=== PATIENT | male | born 1940 | race Caucasian/White ===

== ENCOUNTER → 2018-09-30 | Outpatient (CLI) | payer MEDICARE | END | disposition home or self-care (01) | LOC: LABWHC1 07:54 | PROVIDERS: ATTEND Urology | DX: R73.01 Impaired fasting glucose (principal); R97.20 Elevated prostate specific antigen [PSA] | CPT/HCPCS: 36415; 82947; 84153 ==

== ENCOUNTER → 2021-01-21 | Outpatient (CLI) | payer MEDICARE | END | disposition home or self-care (01) | LOC: LABPAT 07:58 | PROVIDERS: ATTEND Orthopaedic Surgery | DX: M17.12 Unilateral primary osteoarthritis, left knee (principal) | CPT/HCPCS: 93005 ==

== ENCOUNTER → 2021-01-24 | Outpatient (CLI) | payer MEDICARE ==
[2021-01-24 09:23] LABS: HCT 39.3 % (39.0-53.0); HGB 13.6 gm/dL (13.0-17.5); MCH 32.9 pg (25.0-35.0); MCHC 34.7 g/dL (31.0-37.0); MCV 94.9 fL (80.0-100.0); Mean Platelet Volume 6.9; Platelet Count 260 k/uL (150-450); RBC 4.15 m/uL (4.30-5.90); RDW 13.4 % (11.5-15.5)
[2021-01-24 09:35] LABS: Albumin 4.1 g/dL (3.5-5.0); Potassium 4.8 mmol/L (3.5-5.1); Total Bilirubin 0.7 mg/dL (0.2-1.3)
[2021-01-24 09:47] LABS: Appearance,Urine Clear (Clear); Bilirubin,Urine Negative (Negative); Blood,Urine Trace (Negative); Color,Urine Yellow; Glucose,Urine (UA) Negative (Negative); Ketones,Urine Negative (Negative); Leukocyte Esterase,Urine Negative (Negative); Mucus,Urine Rare /hpf; Nitrite,Urine Negative (Negative); PH, Urine 5.5 (5.0-8.0); Protein,Urine Negative (Negative); RBC,Urine <1 /hpf (0-5); Specific Gravity,Urine 1.015 (1.001-1.035); Squamous Epithelial Cell,Urine <1 /hpf (0-4); Urobilinogen,Urine <2.0 mg/dL (<2.0); WBC,Urine 1 /hpf (0-5)
[2021-01-24 09:55] LABS: INR 0.9 (<1.2); Partial Thromboplastin Time 22.8 sec (22.0-30.0); Prothrombin Time 9.7 sec (9.0-12.0)
== END | disposition home or self-care (01) ==
LOC: LABPAT 08:20
PROVIDERS: ATTEND Orthopaedic Surgery
DX: Z01.812 Encounter for preprocedural laboratory examination (principal)
CPT/HCPCS: 80053; 81001; 85027; 85610; 85730

== ENCOUNTER 2021-02-20 09:48 | Observation (INO) | payer MEDICARE ==
[2021-02-15 16:03] VITALS: BMI 25.4
[~2021-02-20 09:48] MED LIST: ACETAMINOPHEN TAB 500 MG TAB PO PRN; DEXAMETHASONE SOD PHOSPHATE 10 MG/ML 1 ML VIAL IV PRN; DEXAMETHASONE SOD PHOSPHATE 4 MG/ML 1 ML VIAL IV ONE; DOCUSATE 100 MG CAP PO PRN; FAMOTIDINE 20 MG/2 ML VIAL IVP PRN; HYDROmorphone 0.5 MG/0.5 ML SYRINGE IVP PRN; KETOROLAC 15 MG/ML 1 ML VIAL IVP PRN; LACTATED RINGERS 1,000 ML IV SCH; LIDOCAINE 1% (10MG/ML) FOR IV START INTRADERMA PRN; MIDAZOLAM 2 MG/2 ML VIAL IV PRN; ONDANSETRON 4 MG/2 ML VIAL IVP ONE; ONDANSETRON 4 MG/2 ML VIAL IVP PRN; TRANEXAMIC ACID 1,000 MG in SODIUM CHLORIDE 0.9% 100 ML IVPB PRN; VANCOMYCIN 1,000 MG in SODIUM CHLORIDE 0.9% 250 ML IVPB PRN; oxyCODONE ER 10 MG TAB.ER.12H PO PRN
[2021-02-20] MEDS ORDERED: TRANEXAMIC ACID 1,000 MG in SODIUM CHLORIDE 0.9% 100 ML IVPB ONE (10:19)
[2021-02-20 10:56] LABS: Glucose,Whole Blood 105 mg/dL (75-99)
[2021-02-20] MEDS ORDERED: MIDAZOLAM 2 MG/2 ML VIAL IVP ONE (12:32)
--- NOTE | 2021-02-20 13:15 | P.ANPRN ---
Procedure Note - Anesthesia - Nerve Block Performed Left Adductor Canal Time Out Performed: Yes (12:30) Date of Procedure: 02/20/21 Procedure Start Time: :30 Procedure Stop Time: : Location of Patient: PreOp Indication: Acute Post-Operative Pain, Requested by Surgeon (Dr Thorpe) Sedation Type: Sedate with meaningful contact maintained Preparation: Sterile Prep, Sterile Dressing Position: Supine Catheter: Indwelling Needle Types: Pajunk Needle Gauge: 21 Ultrasound used to visualize needle placement: Yes Ultrasound used to observe medication spread: Yes Injectate: 0.5% Ropivacaine (see comment for volume) (15cc) Blood Aspirated: No Pain Paresthesia on Injection Noted: No Resistance on Injection: Normal Image Stored and Saved: Yes Events: Uneventful and Well Tolerated
--- NOTE | 2021-02-20 13:22 | P.ANPRN ---
Procedure Note - Anesthesia - Nerve Block Performed Left iPack Time Out Performed: Yes Date of Procedure: 02/20/21 Procedure Start Time: 12:42 Procedure Stop Time: 12:52 Location of Patient: PreOp Indication: Acute Post-Operative Pain, Requested by Surgeon (Dr Thorpe) Sedation Type: Sedate with meaningful contact maintained Preparation: Sterile Prep Position: Supine Catheter: None Needle Types: Pajunk Needle Gauge: 21 Ultrasound used to visualize needle placement: Yes Ultrasound used to observe medication spread: Yes Injectate: 0.5% Ropivacaine (see comment for volume) (15cc + 5cc PFNormal saline) Blood Aspirated: No Pain Paresthesia on Injection Noted: No Resistance on Injection: Normal Image Stored and Saved: Yes Events: Uneventful and Well Tolerated
[2021-02-20] MEDS ORDERED: LIDOCAINE 1% INJ 10MG/ML (20 ML MDV) ONE (13:32)
[2021-02-20] MEDS ORDERED: GLYCOPYRROLATE 0.2 MG/ML 2 ML VIAL ONE (13:32)
[2021-02-20] MEDS ORDERED: SODIUM CHLORIDE 0.9% 100 ML BAG ONE (13:32)
[2021-02-20] MEDS ORDERED: SUCCINYLCHOLINE CHLORIDE 100 MG/5 ML SYR IV ONE (13:32)
[2021-02-20] MEDS ORDERED: TRANEXAMIC ACID 1,000 MG/10 ML VIAL ONE (13:32)
[2021-02-20] MEDS ORDERED: SODIUM CHLORIDE 0.9% (PF) 10 ML VIAL ONE (13:32)
[2021-02-20] MEDS ORDERED: ROCURONIUM 10 MG/ML (5 ML VIAL) IV ONE (13:32)
[2021-02-20] MEDS ORDERED: fentaNYL (PF) 50 MCG/ML 2 ML AMP ONE (13:32)
[2021-02-20] MEDS ORDERED: ROPIVACAINE 5 MG/ML 30 ML VIAL ONE (13:32)
[2021-02-20] MEDS ORDERED: ePHEDrine 50 MG/ML 1 ML AMP ONE (13:32)
[2021-02-20] MEDS ORDERED: NEOSTIGMINE 1 MG/ML 10 ML VIAL ONE (13:32)
[2021-02-20] MEDS ORDERED: PHENYLEPHRINE-0.9% NACL SYG 1,000 MCG/10 ML SYRINGE ONE (13:32)
[2021-02-20] MEDS ORDERED: PROPOFOL 10 MG/ML 20 ML VIAL IV ONE (13:32)
[2021-02-20] MEDS ORDERED: HYDROmorphone (PF) 1 MG/ML ONE (13:32)
[2021-02-20] MEDS ORDERED: LACTATED RINGERS 1,000 ML IV ONE ×4 (14:00→18:43)
[2021-02-20] MEDS: ROPIVACAINE/EPI/CLONIDINE/KET 50 ML SYRINGE MISCELLANE PRN ×2 (15:59→16:58)
[2021-02-20] MEDS ORDERED: VANCOMYCIN 1,000 MG VIAL MISCELLANE ONE (17:04)
[2021-02-20] MEDS ORDERED: MAGNESIUM HYDROXIDE 2,400 MG/10 ML CUP PO PRN (17:55)
[2021-02-20] MEDS ORDERED: HYDROcodone/APAP 5-325MG 1 EACH TAB PO PRN (17:55)
[2021-02-20] MEDS ORDERED: HYDROmorphone 0.2 MG/1 ML SYRINGE IVP PRN (17:55)
[2021-02-20] MEDS ORDERED: hydrOXYzine pamoate 25 MG CAP PO PRN (17:55)
[2021-02-20] MEDS ORDERED: HYDROmorphone 0.5 MG/0.5 ML SYRINGE IVP PRN (17:55)
[2021-02-20] MEDS ORDERED: ONDANSETRON 4 MG/2 ML VIAL IVP PRN (17:55)
[2021-02-20] MEDS ORDERED: NALOXONE 0.4 MG/ML 1 ML VIAL IV PRN (17:55)
--- NOTE | 2021-02-20 18:07 | P.OP ---
Date of Procedure: 02/20/21 Preoperative Diagnosis: Painful left total knee, arthrofibrosis Postoperative Diagnosis: Same Procedure(s) Performed: 1. Left revision total knee arthroplasty 2. Application of negative pressure dressing less than 50 cm, left knee Implants: 1. Johnny Triathlon TS Size #6 with [id number] stem (5-mm posteromedial augment) 2. Elfrida Triathlon Size #7 Tibial baseplate with [id number] stem 3. Johnny Size C cone, tibia 4. Elfrida TS poly 9mm Anesthesia: GETA, regional Surgeon: Hood Thorpe Arcgis Developer #1: Roslyn Corado Estimated Blood Loss (ml): 300 IV fluids (ml): 1,500 Pathology: other (Deep fluid and tissue cultures) Condition: stable Disposition: PACU Indications for Procedure: The patient is a very pleasant 80-year-old male with a medical history significant for type 2 diabetes and chronic renal insufficiency who underwent a primary left total knee arthroplasty in 2012. He says that his knee never felt right. He denies any Locations related to infection. His main issue is lack of motion. He underwent a manipulation 3 months after surgery but continued to have stiffness. He continued to have pain and stiffness and presented to my office several months ago. Clinically he had a 5 flexion contracture and flexion to 70. He was worked up with inflammatory markers which were normal and an aspiration which was negative. We discussed continued nonsurgical treatment versus revision. The patient had failed a long course of nonsurgical treatment and requested revision surgery. We discussed the potential risks and Locations of surgery including but certainly not limited to risks from anesthesia, superficial infection, deep periprosthetic joint infection, damage to local blood vessels or nerves, delayed wound healing, wound necrosis, intraoperative fracture, postoperative fracture, extensor mechanism problems including disruption or patellar maltracking, damage the collateral ligaments, stiffness, instability, continued or worsened pain, and inability to regain pre injury level of function, the satisfaction with surgery, DVT, PE, other medical complications, need for revision surgery, and possibly loss of life or limb. The patient voiced his understanding of this particularly the possibility of stiffness. He provided his verbal and written consent to go forward with surgery. Operative Findings: There was clear serous fluid in the joint no sign of infection. There was diffuse and abundant scar tissue throughout the knee which was debrided. Following surgery with implants and the patient had full extension and flexion to 110. The knee felt stable. During trialing a small fracture line was noted along the posterior proximal tibia when inserting the cone. I used a 100 mm stem to bypass this. Description of Procedure: The patient was identified in preoperative holding and the correct left leg was marked with my initials. I reviewed the consent form with the patient and his . All their questions were answered. We reviewed the procedure and potential complications again. The patient was given a block by anesthesia. He was brought to the operating room, transferred to the OR table, given a general anesthetic and preoperative antibiotics. Once the patient was under anesthesia and exam of the knee was performed. He had a 5 flexion contracture and flexion to 70. There was mid flexion instability. There is a moderate effusion. He had a palpable popliteal pulse and his dorsalis pedis pulse and posterior tibial pulse was identified with Doppler. The left leg was then prepped and draped in the standard sterile fashion. Prior to starting surgery timeout was performed identifying the correct patient, operative extremity, and procedure. The patient's leg was then elevated, exsanguinated with an Esmarch bandage, and the tourniquet was inflated to 250 mmHg. I began by making a straight anterior incision to the knee using his prior scar. Dissection was carried proximal to the incision so pit river tissue planes could be identified. I dissected deep to the fascia and raised a medial and lateral flap. A medial parapatellar arthrotomy was performed. Clear yellow fluid was identified and sent for cultures. The knee was noted to have abundant scar tissue throughout. Both the medial and lateral gutters were developed taking care to protect the collateral ligaments. I dissected the medial lateral gutter down to the septum. There was significant scar in the notch of the femur. The patellar mechanism was carefully protected and the poly-was removed. Attention was first turned to the femur. I carefully developed the interval between the implant bone. Then using a reciprocating saw I carefully probed Ethibond between the implant and cement. The femur was carefully removed with minimal bone loss. Attention was then turned to the tibia. There was significant scarring around the tibia. Both the medial lateral meniscus were still present although significant a truncated. The posterior medial released around the tibia was performed. I carefully subluxed the tibia anteriorly. I developed the interval between the press-fit tibia implant and bone with a reciprocating saw. I then carefully remove the implant starting in extension to debonded from the bone and then flexing the knee to remove the implant. There is minimal bone loss from the tibia. At this point a freshening cut was made of the tibia at neutral. An opening reamer was used to gain access followed by the large 12 mm reamer. I sized the tibia to a size 7 which had good fit. I then reamed for a size C Valentin which felt stable. A trial tibial baseplate was then placed with a 3 mm stem. Attention was then turned to the femur. I made freshening cuts along the posterior femur. I sized the femur to a size 6. The box cutting guide was placed and a box was cut to accommodate the implant. I then open the canal and placed a 6 mm trial femur with 50 mm stem. On evaluation of the femoral implant with the patient's femur there is a small gap posterior medially so I elected to place a 5 mm augment. With a 9 mm poly-insert the patient had full extension and flexion to 110. At this point all trial implants were removed. The wound was thoroughly irrigated. The implants were placed in a staged fashion. When placing the final cone in the tibia I saw a small sagittal fracture line from a retractor in the posterior tibia. The fracture line appeared to extend about 1 cm distal to the cone but did not propagate distally. It was essentially nondisplaced. Due to this fracture I elected to ream and place a longer stem. The restrictor was placed distal and cement was gently pressurized. The final tibial baseplate and stem were gently held taking care to match the patient's pit river rotation. Once the cement had hardened attention was turned to the femur. The femur was thoroughly irrigated and a cement restrictor was placed. Cement was pressurized into the femur and the final stem implant was placed. Once the stem had hardened a 9 mm TS poly-was placed. The tourniquet was let down. The patient had full extension and flexion to 110. The patella tracked centrally The knee was stable to varus and valgus stress throughout. Bleeders were controlled. Vancomycin powder was placed deep over the implants. A medium Hemovac drain was placed. The wound was closed in layers using monofilament barbed sutures. A Prevena a wound VAC was placed over the closed incision due to this being a revision. I verified that all instrument, sponge, and sharp counts were correct. Web roll and Rj wrap were placed over the patient's leg. The patient was then awoken from his anesthetic, transferred to a gurney, and brought to recovery having tolerated the procedure well. Roslyn Corado PA-C was required as a skilled assistant laboratory director for patient positioning, exposure, retraction, placement of implants, and closure of wound.
--- NOTE | 2021-02-20 18:55 | XR ---
EXAMINATION TYPE: XR knee limited LT DATE OF EXAM: 02/20/2021 COMPARISON: 05/25/2012 HISTORY: Knee surgery TECHNIQUE: 2 views FINDINGS: There is a left knee prosthesis revision. Components are in anatomic position. There is ant erior drain. IMPRESSION: No complicating process seen.
[2021-02-20] MEDS ORDERED: ROPIVACAINE 0.2%-NS ON-Q PUMP 1,090 MG, EMPTY PAIN BALL 1 EACH MISCELLANE PRN (19:04)
[2021-02-20 19:38] LABS: Glucose,Whole Blood 163 mg/dL (75-99)
[2021-02-20] MEDS: SENNOSIDES-DOCUSATE SODIUM 1 EACH TAB PO SCH (21:14)
[2021-02-20] MEDS: ASPIRIN 81 MG PO SCH (21:14)
[2021-02-20] MEDS: LACTATED RINGERS 1,000 ML IV SCH (21:15)
[2021-02-20] MEDS: HYDROmorphone 0.5 MG/0.5 ML SYRINGE IVP PRN (22:42)
[2021-02-21] MEDS: HYDROmorphone 0.5 MG/0.5 ML SYRINGE IVP PRN ×2 (02:34→22:52)
[2021-02-21] MEDS: LACTATED RINGERS 1,000 ML IV SCH (04:36)
--- NOTE | 2021-02-21 07:16 | P.PN ---
Progress Note - Text Progress Note Date: 02/21/21 Postoperative day # 1 status post total knee arthroplast, and adductor canal catheter placed for postoperative analgesia, currently at ropivacaine 0.2% 8 mL per hour and continuous infusion, visual analogue scale is 4/10, patient using oral pain medication for breakthrough pain. Assessment and plan= Acute postoperative pain, adductor canal catheter for pain control, pain is well controlled we'll continue the same management.
[2021-02-21] MEDS: ASPIRIN 81 MG PO SCH ×2 (07:52→22:17)
[2021-02-21] MEDS ORDERED: BENZOCAINE/MENTHOL LOZENG 1 EACH LOZENGE MUCOUS MEM PRN (09:08)
--- NOTE | 2021-02-21 09:32 | P.CONS ---
History of Present Illness - Reason for Consult Consult date: 02/21/21 HTN Requesting physician: Hood Thorpe - Chief Complaint left knee pain - History of Present Illness [facility] is covering [facility] (Dr. Negron, Dr. Glynn, and Dr. Diaz) on 02/21 and 02/22 please contact us on perfect serve with any questions, needs, or concerns. Patient is a 80 yo CM patient of Dr. Glynn with CKD, Diabetes type II with hyperglycemia, and CAD who presented for elective left total knee revision. He tolerated the proceure well wtihout an immediate post-op complications. Examined at bedside. He reports that his left knee pain is well-controlled on the ball is working better. He denies any shortness of breath, chest discomfort, nausea, vomiting. He states he tolerated the procedure well. This is any revision and he has already had 1 left arthroplasty. He reports that he is not having any recent illnesses such as cough, cold, fever, flu. He is unsure if he is still taking metoprolol as he states Dr. Rader recently took him off one of his blood pressure medications due to low blood pressures. Pertinent positives and negatives as discussed in HPI, a complete review of systems was performed and all other systems are negative. General: non toxic, no distress, appears at stated age Derm: warm, dry, left knee with dressing in place, Brovaia a drain in place with sanguineous output Head: atraumatic, normocephalic, symmetric Eyes: EOMI, no lid lag, anicteric sclera, pupils equal round reactive to light ENT: Nose and ears atraumatic, no thrush, no pharyngeal erythema Neck: No thyromegaly, no cervical lymphadenopathy, trachea midline, supple Mouth: no lip lesion, mucus membranes moist Cardiovascular: S1S2 reg, no murmur, positive posterior tibial pulse bilateral, no edema, capillary refill less than 2 seconds Lungs: clear to ascultation bilateral, no ronchi, no rales, no wheeze, no accessory muscle use Abdominal: soft, nontender to palpation, no guarding, no appreciable organomegaly, normal bowel sounds Ext: no gross muscle atrophy, muscle strength muscle strength 5 out of 5 in b/l upper extremities, no contractures Neuro: CN II-XI grossly intact, light touch intact all 4 extremities, finger to nose within normal limits, Psych: Alert, oriented, appropriate affect DM 2 - appetitie has not returned to baseline yet - follow with SSI - anticipate resume metformin in AM HTN, controlled - patient thinks that his BP meds were recently changed with Dr. Rader, will obtain records - hold off on metformin - follow BP Dyslipidemia - Zetia and statin CAD - resume ASA when okay with surgery - Statin - BB on hold until verified from cardiology associates. Hx of bladder Cancer Thank you for allowing us to participate in the care of this pleasant patient. Do not hesitate to contact us with questions. Someone can be reached from the [facility] hospitalist group all hours of the day at [phone] or via [employer]. Past Medical History Past Medical History: Coronary Artery Disease (CAD), Cancer, Diabetes Mellitus, Hyperlipidemia, Osteoarthritis (OA) Additional Past Medical History / Comment(s): sleep apnea- no longer a pb since sx, hypotension, retinal scarring lt eye, peptic ulcer years ago, skin cancer 2007, bladder cancer-had surg. History of Any Multi-Drug Resistant Organisms: None Reported Past Surgical History: Appendectomy, Cholecystectomy, Coronary Bypass/CABG, Heart Catheterization With Stent, Joint Replacement Additional Past Surgical History / Comment(s): left knee replacement and then revision, left rotator cuff, bilateral cataracts, sx for sleep apnea, colonoscopy, 3 cardiac stents, skin ca removed from ear, bladder tumor removed, double coronary bypass Past Anesthesia/Blood Transfusion Reactions: No Reported Reaction Date of Last Stent Placement:: unk Past Psychological History: No Psychological Hx Reported Smoking Status: Former smoker Past Alcohol Use History: Rare Additional Past Alcohol Use History / Comment(s): smoked x 15 years ppd, quit 1976 Past Drug Use History: None Reported - Past Family History Mother Family Medical History: Cancer Additional Family Medical History / Comment(s): colon cancer Father Family Medical History: Diabetes Mellitus Medications and Allergies Home Medications Medication Instructions Recorded Confirmed Type Vit C/E/Zn/Coppr/Lutein/Zeaxan 1 cap PO DAILY 12/11/15 02/20/21 History [Preservision Areds 2 Softgel] Aspirin 81 mg PO DAILY 02/15/21 02/20/21 History Ezetimibe [Zetia] 10 mg PO DAILY 02/15/21 02/20/21 History Metoprolol Tartrate [Lopressor] 25 mg PO HS 02/15/21 02/20/21 History Pravastatin Sodium [Pravachol] 20 mg PO HS 02/15/21 02/20/21 History Tamsulosin [Flomax] 0.4 mg PO HS 02/15/21 02/20/21 History Ubidecarenone [Co Q-10] 100 mg PO DAILY 02/15/21 02/20/21 History metFORMIN HCL [Glucophage XR] 750 mg PO AC-SUPPER 02/15/21 02/20/21 History Allergies Allergy/AdvReac Type Severity Reaction Status Date / Time Penicillins Allergy Rash/Hives Verified 02/20/21 10:36 adhesive tape AdvReac TEARS SKIN Verified 02/20/21 10:36 Physical Exam Osteopathic Statement: *. No significant issues noted on an osteopathic structural exam other than those noted in the History and Physical/Consult. Vitals: Vital Signs Temp Pulse Resp BP Pulse Ox 02/21/21 08:00 98.2 F 87 16 96/58 96 02/21/21 02:00 97.9 F 83 18 106/65 93 L 02/20/21 21:28 90 99/59 92 L 02/20/21 21:13 88 102/61 94 L 02/20/21 20:58 85 95/55 93 L 02/20/21 20:43 91 99/62 93 L 02/20/21 20:29 97.1 F L 86 17 106/61 92 L 02/20/21 19:31 97.6 F 80 17 109/55 99 02/20/21 19:17 82 16 110/57 98 02/20/21 19:02 81 16 111/55 97 02/20/21 18:47 81 16 100/52 96 02/20/21 18:32 82 16 100/42 97 02/20/21 18:17 79 16 110/52 100 02/20/21 18:02 82 16 106/51 98 02/20/21 17:47 97.6 F 56 L 16 92/48 95 02/20/21 12:56 69 16 132/61 97 02/20/21 11:02 96.8 F L 60 18 141/68 99 02/20/21 10:41 96.8 F L 60 18 141/68 99 Intake and Output 02/20/21 02/21/21 02/21/21 22:59 06:59 14:59 Intake Total 1000 300 Output Total 1050 840 560 Balance -50 -840 -260 Intake: IV 1000 Oral 300 Output: Drainage 140 60 Left Lateral 140 60 Urine 850 700 500 Uretheral (Starkey) 500 Estimated Blood Loss 200 Other: Voiding Method Indwelling Catheter Weight 83.007 kg Results Labs: Abnormal Lab Results - Last 24 Hours (Table) 02/20/21 02/20/21 Range/Units 10:52 19:36 POC Glucose (mg/dL) 105 H 163 H (75-99) mg/dL
[2021-02-21 11:18] LABS: Glucose,Whole Blood 129 mg/dL (75-99)
[2021-02-21 11:38] LABS: Basophils # (A) 0.09 X 10*3/uL (0.00-0.10); Basophils % (A) 0.6 %; Eosinophils # (A) 0.01 X 10*3/uL (0.04-0.35); Eosinophils % (A) 0.1 %; HCT 33.2 % (39.6-50.0); HGB 10.7 g/dL (13.0-17.0); Lymphocytes % (A) 7.7 %; MCH 31.1 pg (27.0-32.0); MCHC 32.2 g/dL (32.0-37.0); MCV 96.5 fL (80.0-97.0); Mean Platelet Volume 9.7 fL (9.5-12.2); Monocytes # (A) 1.13 X 10*3/uL (0.20-1.00); Monocytes % (A) 7.9 %; Neutrophils # (A) 11.88 X 10*3/uL (1.80-7.70); Neutrophils % (A) 83.1 %; Platelet Count 198 X 10*3/uL (140-440); RBC 3.44 X 10*6/uL (4.40-5.60); RDW 13.3 % (11.5-14.5); WBC 14.29 X 10*3/uL (4.50-10.00)
[2021-02-21] MEDS: INSULIN ASPART (NovoLOG) 100 UNIT/ML VIAL SQ SCH ×3 (11:43→22:16)
[2021-02-21] MEDS: HYDROcodone/APAP 5-325MG 1 EACH TAB PO PRN ×2 (12:04→18:03)
--- NOTE | 2021-02-21 13:08 | P.PN ---
Subjective Progress Note Date: 02/21/21 This patient is an 80- year old male who is status-post left revision total knee arthroplasty on 02/20/21. Today is post-operative day #1. Patient is seen and examined bedside. He states his pain is well-controlled at this time. He has not yet been up with physical therapy. Patient is tolerating his diet well. He feels well with no complaints. Per nursing, hemovac drain put out 165mL last night, and 60 mL was drained this morning. He denies chest pain, shortness of breath, nausea, vomiting, fevers, ch ills. Vital signs stable. Objective - Vital Signs Vital signs: Vital Signs Temp 98.2 F 02/21/21 08:00 Pulse 87 02/21/21 08:00 Resp 16 02/21/21 08:00 BP 96/58 02/21/21 08:00 Pulse Ox 96 02/21/21 08:00 Intake & Output 02/20/21 02/21/21 02/21/21 18:59 06:59 18:59 Intake Total 3200 50 300 Output Total 1050 840 560 Balance 2150 -790 -260 Weight 83.007 kg 83.007 kg Intake: IV 3200 50 Oral 300 Output: Drainage 140 60 Left Lateral 140 60 Urine 850 700 500 Uretheral (Starkey) 500 Estimated Blood Loss 200 Other: Voiding Method Indwelling Catheter - Exam On examination, the patient is sitting up in bed in no apparent distress. He is alert and oriented 3. On inspection of the left knee, there is a Prevena wound VAC and Hemovac drain in place. there is mild swelling of the knee. Motor and sensory function is intact of the left lower extremity. The left lower extremity is warm and well perfused with brisk capillary refill distally. Calf is soft and nontender to palpation, no evidence of DVT. - Labs CBC & Chem 7: 02/21/21 05:32 Labs: Abnormal Lab Results - Last 24 Hours (Table) 02/20/21 02/21/21 02/21/21 Range/Units 19:36 05:32 11:16 WBC 14.29 H (4.50-10.00) X 10*3/uL RBC 3.44 L (4.40-5.60) X 10*6/uL Hgb 10.7 L (13.0-17.0) g/dL Hct 33.2 L (39.6-50.0) % Immature Gran # 0.08 H (0.00-0.04) X 10*3/uL Neutrophils # 11.88 H (1.80-7.70) X 10*3/uL Monocytes # 1.13 H (0.20-1.00) X 10*3/uL Eosinophils # 0.01 L (0.04-0.35) X 10*3/uL POC Glucose (mg/dL) 163 H 129 H (75-99) mg/dL Assessment and Plan Assessment: Left revision total knee arthroplasty on 02/20/21. Post-operative day #1. Plan: - Patient may weight-bear as tolerated on the left lower extremity. Up with assistance, up with a walker. - Physical therapy for gait and balance training. - Keep incisional wound VAC and hemovac drain in place. - Pain management as needed. - Aspirin 81mg BID for DVT prophylaxis. - Post-operative IV ancef complete. Begin doxycycline 100mg BID. - Internal medicine consultation for perioperative medical management. - Anticipate discharge home with home health care tomorrow.
[2021-02-21 16:34] LABS: Glucose,Whole Blood 159 mg/dL (75-99)
[2021-02-21] MEDS ORDERED: PRAVASTATIN SODIUM 20 MG TAB PO SCH (21:00)
[2021-02-21] MEDS ORDERED: TAMSULOSIN 0.4 MG CAP.ER.24H PO SCH (21:00)
[2021-02-21 21:10] LABS: Glucose,Whole Blood 152 mg/dL (75-99)
[2021-02-21] MEDS: SENNOSIDES-DOCUSATE SODIUM 1 EACH TAB PO SCH (22:16)
[2021-02-21] MEDS: DOXYCYCLINE 100 MG CAP PO SCH (22:16)
[2021-02-22] MEDS: HYDROcodone/APAP 5-325MG 1 EACH TAB PO PRN ×2 (04:18→10:03)
[2021-02-22 07:26] LABS: HCT 37.3 % (39.0-53.0); HGB 12.2 gm/dL (13.0-17.5); MCH 32.1 pg (25.0-35.0); MCHC 32.7 g/dL (31.0-37.0); MCV 98.1 fL (80.0-100.0); Mean Platelet Volume 7.2; Platelet Count 211 k/uL (150-450); RDW 13.1 % (11.5-15.5); WBC 11.1 k/uL (3.8-10.6)
[2021-02-22] MEDS: ASPIRIN 81 MG PO SCH (07:36)
[2021-02-22] MEDS: INSULIN ASPART (NovoLOG) 100 UNIT/ML VIAL SQ SCH ×2 (07:36→12:15)
[2021-02-22] MEDS: DOXYCYCLINE 100 MG CAP PO SCH (07:37)
[2021-02-22 07:38] LABS: Glucose,Whole Blood 128 mg/dL (75-99)
[2021-02-22 08:04] LABS: African American GFR (CKD) 69 (>60 ml/min/1.73 sqM); Anion Gap 5 mmol/L; Blood Urea Nitrogen 22 mg/dL (9-20); Calcium 8.8 mg/dL (8.4-10.2); Carbon Dioxide 25 mmol/L (22-30); Chloride 107 mmol/L (98-107); Glucose 152 mg/dL (74-99); Non-African American GFR(CKD) 60 (>60 ml/min/1.73 sqM); Potassium 4.6 mmol/L (3.5-5.1); Sodium 137 mmol/L (137-145)
[2021-02-22 08:11] VITALS: BP 118/74; PULSE 81; RESP 16; TEMP 97.9
[2021-02-22] MEDS ORDERED: EZETIMIBE 10 MG TAB PO SCH (09:00)
--- NOTE | 2021-02-22 09:49 | P.PN ---
Subjective Progress Note Date: 02/22/21 Principal diagnosis: knee pain [facility] is covering [facility] (Dr. Negron, Dr. Glynn, and Dr. Diaz) on 02/21 and 02/22 please contact us on perfect serve with any questions, needs, or concerns. Patient is a 80 yo CM patient of Dr. Glynn with CKD, Diabetes type II with hyperglycemia, and CAD who presented for elective left total knee revision. He tolerated the proceure well wtihout an immediate post-op complications. Patient seen and examined at bedside. No chest pain, SOB, or nasuea. Still no BM. Feels that he can manage the pain at home. General: non toxic, no distress, appears at stated age, sitting in chair with lefs elevated Derm: warm, dry, dreeing inplace over left knee with hemovac, 2+ swelling around the joint. Head: atraumatic, normocephalic, symmetric Mouth: no lip lesion, mucus membranes moist Cardiovascular: S1S2 reg, no murmur, positive posterior tibial pulse bilateral, Lungs: CTA bilateral, no rhonchi, no rales , no accessory muscle use Abdominal: soft, nontender to palpation, no guarding, no appreciable organomegaly Ext: no gross muscle atrophy,no contractures Neuro: CN II-XI grossly intact, no focal neuro deficits Psych: Alert, oriented, appropriate affect Assessment/Plan: Patient is an 80 yo male here for left total knee revision. Post-op management per ortho DM 2 - appetite improved - follow with SSI - resume metformin as home HTN, controlled - metoprolol to resume at home (verified on records from Dr. Rader, will take 1/2 pill as BP has been liable this hospital stay, until he follows with Dr. Glynn next week) - follow BP Dyslipidemia - Zetia and statin CAD - ASA - Statin - BB on hold until verified from cardiology associates. Hx of bladder Cancer Medically optimized for discharge at the discretion of ortho. Discharge Med rec addressed. Thank you for allowing us to participate in the care of this pleasant patient. Do not hesitate to contact us with questions. Someone can be reached from the [facility] hospitalist group all hours of the day at [phone] or via perfect serve. Objective - Vital Signs Vital signs: Vital Signs Temp 97.9 F 02/22/21 08:00 Pulse 81 02/22/21 08:00 Resp 16 02/22/21 08:00 BP 118/74 02/22/21 08:00 Pulse Ox 95 02/22/21 08:00 Intake & Output 02/21/21 02/22/21 02/22/21 18:59 06:59 18:59 Intake Total 300 Output Total 700 2197 Balance -400 -2197 Intake: Oral 300 Output: Drainage 200 Left Lateral 200 Urine 500 2197 Straight 500 Uretheral (Starkey) 500 Other: Voiding Method Toilet Urinal # Voids 2 - Labs CBC & Chem 7: 02/22/21 06:16 02/22/21 06:16 Labs: Abnormal Lab Results - Last 24 Hours (Table) 02/21/21 02/21/21 02/21/21 Range/Units 05:32 11:16 16:30 WBC 14.29 H (4.50-10.00) X 10*3/uL RBC 3.44 L (4.40-5.60) X 10*6/uL Hgb 10.7 L (13.0-17.0) g/dL Hct 33.2 L (39.6-50.0) % Immature Gran # 0.08 H (0.00-0.04) X 10*3/uL Neutrophils # 11.88 H (1.80-7.70) X 10*3/uL Monocytes # 1.13 H (0.20-1.00) X 10*3/uL Eosinophils # 0.01 L (0.04-0.35) X 10*3/uL BUN (9-20) mg/dL Glucose (74-99) mg/dL POC Glucose (mg/dL) 129 H 159 H (75-99) mg/dL 02/21/21 02/22/21 02/22/21 Range/Units 21:09 06:16 06:16 WBC 11.1 H (4.50-10.00) X 10*3/uL RBC 3.80 L (4.40-5.60) X 10*6/uL Hgb 12.2 L (13.0-17.0) g/dL Hct 37.3 L (39.6-50.0) % Immature Gran # (0.00-0.04) X 10*3/uL Neutrophils # (1.80-7.70) X 10*3/uL Monocytes # (0.20-1.00) X 10*3/uL Eosinophils # (0.04-0.35) X 10*3/uL BUN 22 H (9-20) mg/dL Glucose 152 H (74-99) mg/dL POC Glucose (mg/dL) 152 H (75-99) mg/dL 02/22/21 Range/Units 07:06 WBC (4.50-10.00) X 10*3/uL RBC (4.40-5.60) X 10*6/uL Hgb (13.0-17.0) g/dL Hct (39.6-50.0) % Immature Gran # (0.00-0.04) X 10*3/uL Neutrophils # (1.80-7.70) X 10*3/uL Monocytes # (0.20-1.00) X 10*3/uL Eosinophils # (0.04-0.35) X 10*3/uL BUN (9-20) mg/dL Glucose (74-99) mg/dL POC Glucose (mg/dL) 128 H (75-99) mg/dL Microbiology - Last 24 Hours (Table) 02/20/21 16:00 Gram Stain - Preliminary Knee - Left Body Fluid Culture - Preliminary 02/20/21 16:00 Gram Stain - Preliminary Knee - Left Tissue Culture - Preliminary 02/20/21 16:00 Gram Stain - Preliminary Knee - Left Tissue Culture - Preliminary 02/20/21 16:00 Anaerobic Culture - Preliminary Knee - Left 02/20/21 16:00 Anaerobic Culture - Preliminary Knee - Left 02/20/21 16:00 Anaerobic Culture - Preliminary Knee - Left
[2021-02-22 11:23] LABS: Glucose,Whole Blood 132 mg/dL (75-99)
--- NOTE | 2021-02-22 20:25 | P.DS ---
Providers Date of admission: 02/21/21 11:08 Expected date of discharge: 02/22/21 Attending physician: Hood Thorpe Consults: 02/20/21 18:01 Consult Physician Routine Consulting Provider: Rosalinda Glynn Consult Reason/Comments: medical management Do you want consulting provider notified?: Yes Primary care physician: Rosalinda Glynn Hospital Course: This is an 80-year-old male with continued pain in the left knee following left total knee arthroplasty in 2012. The patient presented for evaluation as an outpatient by Dr. Thorpe. After discussion and consideration patient elects to proceed with revision left total knee arthroplasty. The patient is seen preoperatively by Dr. Glynn and medically cleared for surgery by their primary care physician. Patient is admitted to [facility] on 02/20/21 for revision left total knee arthroplasty. The procedure is performed without complication or sequelae. The patient is doing well postoperatively. Labs and vital signs are stable on day of discharge. Patient is seen and examined bedside this morning. He is up to the bedside chair. He notes his pain in his knee is well controlled. He tolerated his br eakfast well. He is voiding without issue. He has not had a bowel movement yet, although he is passing gas. He denies chest pain, shortness breath, and also, vomiting, fevers, chills, numbness or tingling in the right lower extremity. No complaints this morning. On examination, patient is up to the bedside chair. He is alert and orientated x3. On inspection of the left knee, there is wound vac in place. Mild swelling of the knee. Drain has been pulled. No bleeding, drainage through the dressings. Patient has full foot and ankle motion without difficulty or pain. Calf is soft and nontender to palpation. Neurovascular status to the left lower extremity is intact. Patient is discharged home with home health care today, pending medical clearance, in good condition. Opioid start talking form is reviewed and signed. Please see med rec for accurate list of home medications. Patient Condition at Discharge: Fair Plan - Discharge Summary Discharge Rx Participant: No New Discharge Prescriptions: New HYDROcodone/APAP 5-325MG [Mal[place] 5-325] 1 tab PO Q6HR PRN 7 Days #30 tab PRN Reason: Pain Docusate [Colace] 100 mg PO BID #60 capsule Omeprazole 40 mg PO DAILY 30 Days #30 cap Aspirin 81 mg PO BID 30 Days #60 tab Doxycycline Monohydrate 100 mg PO BID 14 Days #28 cap Diclofenac Sodium [Voltaren] 75 mg PO BID 30 Days #60 tab Continue Vit C/E/Zn/Coppr/Lutein/Zeaxan [Preservision Areds 2 Softgel] 1 cap PO DAILY Tamsulosin [Flomax] 0.4 mg PO HS Pravastatin Sodium [Pravachol] 20 mg PO HS metFORMIN HCL [Glucophage XR] 750 mg PO AC-SUPPER Ezetimibe [Zetia] 10 mg PO DAILY Ubidecarenone [Co Q-10] 100 mg PO DAILY Changed Metoprolol Tartrate [Lopressor] 12.5 mg PO HS #0 No Action Aspirin 81 mg PO DAILY Discharge Medication List Vit C/E/Zn/Coppr/Lutein/Zeaxan [Preservision Areds 2 Softgel] 1 cap PO DAILY 12/11/15 [History] Aspirin 81 mg PO DAILY 02/15/21 [History] Ezetimibe [Zetia] 10 mg PO DAILY 02/15/21 [History] Pravastatin Sodium [Pravachol] 20 mg PO HS 02/15/21 [History] Tamsulosin [Flomax] 0.4 mg PO HS 02/15/21 [History] Ubidecarenone [Co Q-10] 100 mg PO DAILY 02/15/21 [History] metFORMIN HCL [Glucophage XR] 750 mg PO AC-SUPPER 02/15/21 [History] Aspirin 81 mg PO BID 30 Days #60 tab 02/22/21 [Rx] Diclofenac Sodium [Voltaren] 75 mg PO BID 30 Days #60 tab 02/22/21 [Rx] Docusate [Colace] 100 mg PO BID #60 capsule 02/22/21 [Rx] Doxycycline Monohydrate 100 mg PO BID 14 Days #28 cap 02/22/21 [Rx] HYDROcodone/APAP 5-325MG [[place] 5-325] 1 tab PO Q6HR PRN 7 Days #30 tab 02/22/21 [Rx] Metoprolol Tartrate [Lopressor] 12.5 mg PO HS #0 02/22/21 [Rx] Omeprazole 40 mg PO DAILY 30 Days #30 cap 02/22/21 [Rx] Follow up Appointment(s)/Referral(s): Rosalinda Glynn MD [Primary Care Provider] - 1 Week (office closed at this time call to make appt after D/C) [facility],Equipment [NON-STAFF] - (*Please call [facility] once home to arrange delivery of the Continuous Passive Motion (CPM) machine. They will pick it up from your home after 21 days. ) [facility], [NON-STAFF] - ([facility] will call you to schedule your in home physical therapy appointments. ) Hood Thorpe MD [Medical Doctor] - 03/04/21 2:00 pm Patient Instructions/Handouts: Revision Total Joint Arthroplasty (DC) Activity/Diet/Wound Care/Special Instructions: Diet: consistent care, heart healthy Special Instructions: Weight-bear as tolerated on the operative leg with a walker. Take pain medications as needed. take antibiotics as prescribed. Aspirin 81 mg twice a day for blood clot prevention. Keep incisional wound VAC in place until follow-up appointment in the office. Follow-up in the office with Dr. Thorpe next Thursday02/26/21 Call the office with any questions or concerns, Metoprolol: Take 12.5 mg (or 1/2 tablet) at night until you follow-up with Dr. Glynn Thank you for trusting us with your care. We wish you well on your journey to better Health. Discharge Disposition: HOME WITH HOME HEALTH SERVICES
== END 2021-02-22 14:29 | disposition home health service (06) ==
LOC: OR 09:48 → 4SSUR 17:47 → OR 02-21 10:31 → 4SSUR 02-21 11:08
PROVIDERS: ADMIT Orthopaedic Surgery; ATTEND Orthopaedic Surgery
DX: M24.662 Ankylosis, left knee (principal); M96.672 Fracture of tibia or fibula following insertion of orthopedic implant, joint prosthesis, or bone plate, left leg; T84.84XA Pain due to internal orthopedic prosthetic devices, implants and grafts, initial encounter; E11.65 Type 2 diabetes mellitus with hyperglycemia; Y83.1 Surgical operation with implant of artificial internal device as the cause of abnormal reaction of the patient, or of later complication, without mention of misadventure at the time of the procedure; I12.9 Hypertensive chronic kidney disease with stage 1 through stage 4 chronic kidney disease, or unspecified chronic kidney disease; N18.9 Chronic kidney disease, unspecified; E11.22 Type 2 diabetes mellitus with diabetic chronic kidney disease; I25.10 Atherosclerotic heart disease of native coronary artery without angina pectoris; E78.5 Hyperlipidemia, unspecified; M19.90 Unspecified osteoarthritis, unspecified site; G47.30 Sleep apnea, unspecified; N40.0 Benign prostatic hyperplasia without lower urinary tract symptoms; M17.11 Unilateral primary osteoarthritis, right knee; Z79.82 Long term (current) use of aspirin; Z79.899 Other long term (current) drug therapy; Z79.84 Long term (current) use of oral hypoglycemic drugs; Z88.0 Allergy status to penicillin; Z91.048 Other nonmedicinal substance allergy status; Z85.51 Personal history of malignant neoplasm of bladder; Z90.49 Acquired absence of other specified parts of digestive tract; Z95.1 Presence of aortocoronary bypass graft; Z87.01 Personal history of pneumonia (recurrent); Z95.5 Presence of coronary angioplasty implant and graft; Z96.652 Presence of left artificial knee joint; Z85.828 Personal history of other malignant neoplasm of skin; Z98.42 Cataract extraction status, left eye; Z98.41 Cataract extraction status, right eye; Z87.891 Personal history of nicotine dependence; Z80.0 Family history of malignant neoplasm of digestive organs; Z82.49 Family history of ischemic heart disease and other diseases of the circulatory system; Z83.3 Family history of diabetes mellitus
CPT/HCPCS: 27487; 97116; 97161; 64999; 64448; 76942; 80048; 85025; 85027; 87070; 87205; 87075; 73560; G0378 ×2; C1776 ×3; C1713; J2250; J3370; J1100; J2710; J0690 ×2; J2405; J2001; J3010; J1170 ×3; J2795 ×2; J1885; J2370; J0330; J2704

== ENCOUNTER → 2021-05-13 | Outpatient (CLI) | payer MEDICARE ==
--- NOTE | 2021-05-13 14:10 | CT ---
EXAMINATION TYPE: CT abdomen pelvis wo con DATE OF EXAM: 05/13/2021 HISTORY: Hernia, Left lower quadrant CT DLP: 845 mGycm. Automated Exposure Control for Dose Reduction was Utilized. TECHNIQUE: CT scan of the abdomen and pelvis is performed with oral but without IV contrast. COMPARISON: CT urogram May 29, 2014 FINDINGS: Within the limitations of a non-contrast study, the following observations are made. LUNG BASES: Mild bibasilar linear scarring and/or atelectasis redemonstrated. Overlying sternal wires are partially imaged similar to prior. LIVER/GB: Cholecystectomy clips are redemonstrated. PANCREAS: Mild to moderate fat replaced atrophy more prominent from prior.. SPLEEN: No significant abnormality is seen. ADRENALS: No significant abnormality is seen. KIDNEYS: A few adjacent thin-walled cysts upper pole of the right kidney redemonstrated. No renal yovanny culi or hydronephrosis seen bilaterally. BOWEL: Oral contrast does not reach colonic level making evaluation of distal bowel slightly suboptim al. No suspicious small or large bowel dilatation. Few diverticula in the left colon. More prominent diverticulosis in the sigmoid colon. No CT evidence for acute diverticulitis. GENITAL ORGANS: Markedly enlarged prostate consistent with BPH bulging on bladder base increased in s ize from prior. LYMPH NODES: No greater than 1cm abdominal or pelvic lymph nodes are appreciated. OSSEOUS STRUCTURES: Multilevel facet arthropathy in the lower lumbar spine redemonstrated. OTHER: Stable small fat-containing right inguinal hernia. More prominent moderate to large sized fat- containing left inguinal hernia. Mild to moderate peripheral calcified plaque in the aorta extends in to branch vessels. IMPRESSION: Stable small fat-containing right inguinal hernia. Moderate to large sized fat-containing left inguinal hernia is thought increased in size from prior CT. No new ventral wall hernia is prese nt.
== END | disposition home or self-care (01) ==
LOC: RADCTMAIN 09:13
PROVIDERS: ATTEND Family Medicine
DX: K40.00 Bilateral inguinal hernia, with obstruction, without gangrene, not specified as recurrent (principal)
CPT/HCPCS: 74176

== ENCOUNTER 2021-06-10 12:45 | Inpatient (IN) | payer MEDICARE ==
[2021-06-10] MEDS ORDERED: HEPARIN SODIUM 1,000 UN/ML (10ML VL) ONE (13:07)
[2021-06-10] MEDS ORDERED: LIDOCAINE 1% INJ 10MG/ML (20 ML MDV) ONE (13:07)
[2021-06-10] MEDS ORDERED: IV FLUID CONTINUATION 850 ML IV ONE (13:50)
[2021-06-10] MEDS ORDERED: MIDAZOLAM 2 MG/2 ML VIAL IV ONE (13:58)
[2021-06-10] MEDS ORDERED: LIDOCAINE 1% INJ 10MG/ML (20 ML MDV) SQ ONE (13:58)
[2021-06-10] MEDS: HEPARIN SODIUM 1,000 UN/ML (10ML VL) IV ONE ×3 (14:05→14:28)
[2021-06-10] MEDS ORDERED: CLOPIDOGREL 75 MG TAB ONE (14:11)
[2021-06-10] MEDS ORDERED: NITROGLYCERIN 1000MCG/10ML SYRINGE INTRACORON ONE (14:20)
[2021-06-10] MEDS ORDERED: CLOPIDOGREL 75 MG TAB PO ONE (14:28)
[2021-06-10] MEDS ORDERED: IOPAMIDOL-370 100ML BTL INJ ONE (14:29)
[2021-06-10 14:46] LABS: Glucose,Whole Blood 109 mg/dL (75-99)
[2021-06-10] MEDS ORDERED: HYDROcodone/APAP 5-325MG 1 EACH TAB PO PRN (14:46)
[2021-06-10] MEDS ORDERED: RX INFO: IV CONTRAST WAS GIVEN 1 EACH MISC MISCELLANE PRN (14:48)
[2021-06-10] MEDS ORDERED: ATROPINE SULFATE 0.1 MG/ML 10ML SYRINGE IV PRN (14:48)
[2021-06-10] MEDS ORDERED: NITROGLYCERIN SL TABS 0.4 MG TAB SUBLINGUAL PRN (14:48)
[2021-06-10] MEDS ORDERED: ZOLPIDEM 5 MG TAB PO PRN (14:48)
[2021-06-10] MEDS ORDERED: MAG HYDROX/AL HYDROX/SIMETH 30 ML CUP PO PRN (14:48)
[2021-06-10 16:57] LABS: Glucose,Whole Blood 121 mg/dL (75-99)
[2021-06-10] MEDS: SODIUM CHLORIDE 0.9% 1,000 ML IV SCH (18:11)
[2021-06-10] MEDS: SODIUM CHLORIDE 0.9% 1,000 ML in EMPTY BAG 1 BAG IV SCH (18:12)
[2021-06-10] MEDS ORDERED: LOSARTAN 25 MG TAB PO SCH (20:00)
[2021-06-10] MEDS: DOCUSATE 100 MG CAP PO SCH (20:17)
[2021-06-10] MEDS: METOPROLOL TARTRATE 12.5 MG TAB PO SCH (20:17)
[2021-06-10] MEDS: ASPIRIN 81 MG PO SCH (20:17)
[2021-06-10] MEDS: ETODOLAC 400 MG TAB PO SCH (20:17)
[2021-06-10 20:21] LABS: Glucose,Whole Blood 161 mg/dL (75-99)
--- NOTE | 2021-06-10 20:30 | PTCA ---
PERCUTANEOUSTRANS CORORONARY ANGIOGRAPHY DATE OF SERVICE: 06/10/2021 PROCEDURE: Percutaneous transluminal coronary angioplasty and stenting of proximal/mid RCA with a drug-eluting stent. PERFORMED BY: Dr. David Rader. Moderate conscious sedation time was 32 minutes. Patient was administered Versed. Oxygen saturation, hemodynamics and EKG were monitored closely. CLINICAL INFORMATION: Mr. Andrew Rosado is a gentleman with history of CAD and prior bypass surgery. His surgery was initially performed probably sometime in 2001. He had a left internal mammary artery graft to LAD and a free radial artery graft to the obtuse marginal branch of circumflex. His right coronary artery was not grafted. He also had stenting of the left main into the LAD because LAD was supplying a diagonal branch, and this was performed in [address] Sarah Rader. Patient presented for elective surgery to [facility], underwent a hernia repair, and while he was in the surgery towards the end, he developed hypotension and then had some chest discomfort with EKG changes. He went on to have a [id number] [place] with preserved ejection fraction. After stabilizing him, he underwent cardiac catheterization at [facility]. Cardiac catheterization revealed a proximal/mid RCA lesion of 70% to 80%, progression of disease within the choctaw second obtuse marginal, which was also being supplied by the first obtuse marginal arterial graft, and this arterial graft was patent. The first OM was patent, but it was going back and filling the second obtuse marginal or the continuation of circumflex, and that portion had some progression of disease up to 50% to 55%. CHAVARRIA to LAD was patent. He was advised intervention of choctaw RCA and was brought from [facility] with the sheath in place. PROCEDURE NOTE: Under local anesthesia, the same 6-[place] introducer in the right femoral artery was used. I used a 3.5 ART guide catheter and cannulated the right coronary artery. A run- through wire was used to cross the lesion. Predilatation was performed with a 2.5 caliber 15 mm NC Trek balloon. I then deployed a 3.0 caliber Xience stent at 14 atmospheres. I then used a 3.25 caliber 8 mm NC Trek balloon and dilated within the proximal half of the stent. Excellent angiographic result without complication was achieved. Patient did not have any chest pain or EKG changes. He received intravenous heparin. ACT was kept between 225 and 250. I gave up to 8500 units of heparin, which is almost 100 units/kg. He also received 600 mg of Plavix. The sheath was taken out and Angio-Seal device used to secure hemostasis and he was sent to the room in stable condition. Excellent angiographic result without complication was achieved. Details were discussed with the patient, his and daughter. I expect he will be discharged tomorrow if he remains stable. MMROSIO / LARRY: [id number] /
[2021-06-10] MEDS ORDERED: ATORVASTATIN 80 MG TAB PO SCH (21:00)
[2021-06-10] MEDS ORDERED: TAMSULOSIN 0.4 MG CAP.ER.24H PO SCH (21:00)
[2021-06-11] MEDS: SODIUM CHLORIDE 0.9% 1,000 ML IV SCH (05:28)
[2021-06-11] MEDS: SODIUM CHLORIDE 0.9% 1,000 ML in EMPTY BAG 1 BAG IV SCH (05:29)
[2021-06-11 06:31] LABS: Glucose,Whole Blood 111 mg/dL (75-99)
[2021-06-11] MEDS: METOPROLOL TARTRATE 12.5 MG TAB PO SCH (08:51)
[2021-06-11] MEDS: ASPIRIN 81 MG PO SCH (08:51)
[2021-06-11] MEDS: DOCUSATE 100 MG CAP PO SCH (08:51)
[2021-06-11] MEDS: ETODOLAC 400 MG TAB PO SCH (08:52)
--- NOTE | 2021-06-11 08:58 | P.GSCN ---
History of Present Illness Consult date: 06/11/21 History of present illness: 81-year-old male was transferred from [facility] for cardiac intervention. He did undergo a open left inguinal hernia repair and did have cardiac arrhythmia developed during the procedure with concern for an STEMI. He did undergo cardiac catheterization and finding of RCA lesion. He did undergo cardiac catheterization. Patient states that he is doing well. Denies any inguinal pain. He is on anticoagulation. Denies nausea or vomiting. Having bowel function. Review of Systems All systems: negative Past Medical History Past Medical History: Coronary Artery Disease (CAD), Cancer, Chest Pain / Angina, Hyperlipidemia, Osteoarthritis (OA) Additional Past Medical History / Comment(s): sleep apnea- no longer a pb since sx, hypotension, retinal scarring lt eye, peptic ulcer years ago, polyps removed were benign,skin cancer 2007, bladder cancer sx only, chronic back pain. History of Any Multi-Drug Resistant Organisms: None Reported Past Surgical History: Appendectomy, Cholecystectomy, Coronary Bypass/CABG, Heart Catheterization With Stent, Joint Replacement Additional Past Surgical History / Comment(s): left knee replacement and then revision, left rotator cuff, bilateral cataracts, sx for sleep apnea, colonoscopy, 3 cardiac stents, skin ca removed from ear, bladder tumor removed, double coronary bypass Past Anesthesia/Blood Transfusion Reactions: No Reported Reaction Date of Last Stent Placement:: unk Past Psychological History: No Psychological Hx Reported Smoking Status: Former smoker Past Alcohol Use History: Rare Additional Past Alcohol Use History / Comment(s): smoked x 15 years appd, quit 1976 Past Drug Use History: None Reported - Past Family History Mother Family Medical History: Cancer Additional Family Medical History / Comment(s): colon cancer Father Family Medical History: Diabetes Mellitus Medications and Allergies Home Medications Medication Instructions Recorded Confirmed Type Vit C/E/Zn/Coppr/Lutein/Zeaxan 1 cap PO DAILY 12/11/15 06/10/21 History [Preservision Areds 2 Softgel] Aspirin 81 mg PO DAILY 02/15/21 06/10/21 History Ezetimibe [Zetia] 10 mg PO DAILY 02/15/21 06/10/21 History Pravastatin Sodium [Pravachol] 20 mg PO HS 02/15/21 06/10/21 History Tamsulosin [Flomax] 0.4 mg PO HS 02/15/21 06/10/21 History Ubidecarenone [Co Q-10] 100 mg PO DAILY 02/15/21 06/10/21 History metFORMIN HCL [Glucophage XR] 750 mg PO W/SUPPER 02/15/21 06/10/21 History EPINEPHrine (Auto Inject) [Epipen] 0.3 mg IM ONCE PRN 06/10/21 06/10/21 History Metoprolol Tartrate [Lopressor] 25 mg PO DAILY 06/10/21 06/10/21 History lisinopriL [Zestril] 5 mg PO DAILY 06/10/21 06/10/21 History Allergies Allergy/AdvReac Type Severity Reaction Status Date / Time Penicillins Allergy Rash/Hives Verified 06/10/21 17:01 adhesive tape AdvReac TEARS SKIN Verified 06/10/21 17:01 Surgical - Exam Osteopathic Statement: *. No significant issues noted on an osteopathic structural exam other than those noted in the History and Physical/Consult. Vital Signs Pulse Resp BP Pulse Ox 76 16 154/71 96 06/10/21 14:48 06/10/21 14:48 06/10/21 14:48 06/10/21 14:48 - General no distress - Eyes normal ocular movement - ENT no hearing loss - Respiratory normal respiratory effort - Abdomen Soft, nontender, nondistended, no rebound, no guarding, left inguinal incision clean, dry and intact - Psychiatric oriented to time, oriented to person, oriented to place Results - Labs Abnormal Lab Results - Last 24 Hours (Table) 06/10/21 06/10/21 06/10/21 Range/Units 14:44 16:55 20:20 POC Glucose (mg/dL) 109 H 121 H 161 H (75-99) mg/dL 06/11/21 Range/Units 06:29 POC Glucose (mg/dL) 111 H (75-99) mg/dL Assessment and Plan Plan: 81-year-old male status post left inguinal hernia repair with mesh, status post cardiac catheterization with stenting. Overall, patient is doing well after these procedures. Okay to continue with anticoagulation per cardiology recommendations. Recommend continuing medical and cardiology treatment. Wound care and activity instructions were discussed with the patient. Patient is to follow-up as an outpatient for postoperative follow-up.
[2021-06-11] MEDS ORDERED: CLOPIDOGREL 75 MG TAB PO SCH (09:00)
[2021-06-11] MEDS ORDERED: PANTOPRAZOLE 40 MG TABLET PO SCH (09:00)
[2021-06-11] MEDS ORDERED: EZETIMIBE 10 MG TAB PO SCH (09:00)
[2021-06-11] MEDS ORDERED: NON FORMULARY DRUG (Ubidecarenone [Co Q-10] 100 MG Capsule) PO SCH (09:00)
[2021-06-11] MEDS ORDERED: VIT A,C & E-LUTEIN-MINERALS 1 EACH TAB PO SCH (09:00)
[2021-06-11 09:40] LABS: Basophils # (A) 0.1 k/uL (0-0.2); Basophils % (A) 1 %; Eosinophils # (A) 0.4 k/uL (0-0.7); Eosinophils % (A) 6 %; HCT 37.8 % (39.0-53.0); HGB 12.5 gm/dL (13.0-17.5); Lymphocytes # (A) 1.1 k/uL (1.0-4.8); Lymphocytes % (A) 14 %; MCH 31.8 pg (25.0-35.0); MCHC 33.2 g/dL (31.0-37.0); MCV 95.9 fL (80.0-100.0); Mean Platelet Volume 6.8; Monocytes # (A) 0.5 k/uL (0-1.0); Monocytes % (A) 7 %; Neutrophils # (A) 5.5 k/uL (1.3-7.7); Neutrophils % (A) 71 %; Platelet Count 271 k/uL (150-450); RBC 3.94 m/uL (4.30-5.90); RDW 13.5 % (11.5-15.5); WBC 7.8 k/uL (3.8-10.6)
[2021-06-11 09:51] LABS: Potassium 4.2 mmol/L (3.5-5.1)
[2021-06-11 09:52] LABS: Calcium 9.1 mg/dL (8.4-10.2)
[2021-06-11 11:35] VITALS: BP 135/82; PULSE 71; RESP 16; TEMP 97.7
[2021-06-11 11:51] VITALS: BMI 25.8
[2021-06-11 12:10] LABS: Glucose,Whole Blood 145 mg/dL (75-99)
--- NOTE | 2021-06-11 13:33 | P.PN ---
<Korin Taylor Marco Antonio - Last Filed: 06/11/21 13:25> Subjective Progress Note Date: 06/11/21 HISTORY OF PRESENT ILLNESS: Patient is status post cardiac catheterization with stenting of the proximal/mid RCA. Patient examined this morning at the bedside. Patient denies chest pain or pressure. He denies rest of breath. Vital signs are stable. PHYSICAL EXAM: VITAL SIGNS: Reviewed. GENERAL: Well-developed in no acute distress. NECK: Supple. No JVD or thyromegaly LUNGS: Respirations even and unlabored. Lungs essentially clear to auscultation bilaterally. HEART: Regular rate and rhythm. S1 and S2 heard. EXTREMITIES: Normal range of motion. No clubbing or cyanosis. Peripheral pulses intact. No lower extremity edema. ASSESSMENT: NSTEMI Coronary artery disease with previous CABG, status post cardiac cath with PCI to RCA Recent hernia repair Hypertension Hyperlipidemia PLAN: Continue current cardiac medications Patient may be discharged home today from a cardiac standpoint and follow up in the office with Dr. Rader Nurse practitioner note has been reviewed by physician. Signing provider agrees with the documented findings, assessment, and plan of care. Objective - Vital Signs Vital signs: Vital Signs Temp 97.7 F 06/11/21 11:35 Pulse 71 06/11/21 11:35 Resp 16 06/11/21 11:35 BP 135/82 06/11/21 11:35 Pulse Ox 97 06/11/21 11:35 Intake & Output 06/10/21 06/11/21 06/11/21 18:59 06:59 18:59 Intake Total 390 118 Output Total 400 800 Balance -10 800 118 Weight 81.647 kg 81.647 kg Intake: IV 150 Oral 240 118 Output: Urine 400 800 Other: Voiding Method Toilet Toilet Urinal # Voids 1 # Bowel Movements 1 - Labs CBC & Chem 7: 06/11/21 08:54 06/11/21 08:54 Labs: Abnormal Lab Results - Last 24 Hours (Table) 06/10/21 06/10/21 06/10/21 Range/Units 14:44 16:55 20:20 RBC (4.30-5.90) m/uL Hgb (13.0-17.5) gm/dL Hct (39.0-53.0) % Glucose (74-99) mg/dL POC Glucose (mg/dL) 109 H 121 H 161 H (75-99) mg/dL 06/11/21 06/11/21 06/11/21 Range/Units 06:29 08:54 08:54 RBC 3.94 L (4.30-5.90) m/uL Hgb 12.5 L (13.0-17.5) gm/dL Hct 37.8 L (39.0-53.0) % Glucose 141 H (74-99) mg/dL POC Glucose (mg/dL) 111 H (75-99) mg/dL 06/11/21 Range/Units 12:02 RBC (4.30-5.90) m/uL Hgb (13.0-17.5) gm/dL Hct (39.0-53.0) % Glucose (74-99) mg/dL POC Glucose (mg/dL) 145 H (75-99) mg/dL <Jim Marcelo - Last Filed: 06/11/21 14:12> Subjective Patient interviewed and examined by me. Data reviewed. Impression and plan formulated by me and discussed with nurse practitioner Nurse practitioner transcribed note on my behalf Objective - Vital Signs Vital signs: Vital Signs Temp 97.7 F 06/11/21 11:35 Pulse 71 06/11/21 13:49 Resp 16 06/11/21 13:49 BP 135/82 06/11/21 11:35 Pulse Ox 97 06/11/21 11:35 Intake & Output 06/10/21 06/11/21 06/11/21 18:59 06:59 18:59 Intake Total 390 118 Output Total 400 800 Balance - 118 Weight 81.647 kg 81.647 kg Intake: IV 150 Oral 240 118 Output: Urine 400 800 Other: Voiding Method Toilet Toilet Urinal # Voids 1 # Bowel Movements 1 - Labs CBC & Chem 7: 06/11/21 08:54 06/11/21 08:54 Labs: Abnormal Lab Results - Last 24 Hours (Table) 06/10/21 06/10/21 06/10/21 Range/Units 14:44 16:55 20:20 RBC (4.30-5.90) m/uL Hgb (13.0-17.5) gm/dL Hct (39.0-53.0) % Glucose (74-99) mg/dL POC Glucose (mg/dL) 109 H 121 H 161 H (75-99) mg/dL 06/11/21 06/11/21 06/11/21 Range/Units 06:29 08:54 08:54 RBC 3.94 L (4.30-5.90) m/uL Hgb 12.5 L (13.0-17.5) gm/dL Hct 37.8 L (39.0-53.0) % Glucose 141 H (74-99) mg/dL POC Glucose (mg/dL) 111 H (75-99) mg/dL 06/11/21 Range/Units 12:02 RBC (4.30-5.90) m/uL Hgb (13.0-17.5) gm/dL Hct (39.0-53.0) % Glucose (74-99) mg/dL POC Glucose (mg/dL) 145 H (75-99) mg/dL
--- NOTE | 2021-06-11 16:39 | P.HPIM ---
History of Present Illness H&P Date: 06/11/21 HISTORY AND PHYSICAL AND DISCHARGE SUMMARY: HISTORY OF PRESENT ILLNESS This is an 81-year-old male patient of Dr. Tolentino with past history of coronary artery disease with history of stent and CABG in 2001 with left internal mammary artery graft to LAD, free radial artery graft to the obtuse marginal branch of the circumflex, stenting of the left main into the LAD in [address] Lantigua, basal cell carcinoma, diabetes mellitus type 2, bladder cancer, hypertension, hyperlipidemia, left inguinal hernia, obstructive sleep apnea. [place] [facility] [place] with mesh placement [place]/2021. During the procedure patient developed narrow complex tachycardia and became hypotensive. He was given IV lidocaine and placed on pressor support with Levophed, patient became bradycardic with heart rate down into the 30s which improved into the 40s and 50s with frequent PVCs. Postoperatively the patient was complaining of chest pain and found to have significant elevation in troponins with 3 sets of troponin of 719, greater than 25,000 and 5828. EKG showed sinus mechanism no ischemic ST-T wave changes. Patient was started on IV dopamine in addition to Levophed and he continued to be bradycardic once he was in the ICU. His chest pain since resolved denies having any palpitations nausea vomiting diarrhea. Echocardiogram revealed normal LV size and segmental wall motion, LVEF 65-70%, mild MR, mild TR, RVSP 37 mmHg, no pericardial effusion. He had a stress test done in June 2020 that was normal. He was stabilized and [place] [facility] [place] a proximal/mid RCA lesion of 70-80% aggression of disease within the [place] second obtuse marginal which was also been supplied by the first obtuse marginal arterial graft and this chill graft was patent. The first OM was patent but it was going back and filling the second obtuse margin or the continuation of circumflex and that portion had progression of disease of 50-55%, CHAVARRIA to LAD was patent. He was advised for intervention to the [place] RCA and was transferred to [facility] emergency center subsequently underwent balloon angiogram and stent placement. Patient is seen one day post procedure and denies any complaints. No chest pain or shortness of breath. He has been seen by cardiology this morning and has been cleared for discharge. REVIEW OF SYSTEMS Constitutional: No fever, no chills, no night sweats. No weight change. No weakness, fatigue or lethargy. No daytime sleepiness. EENT: No headache. No blurred vision or double vision, no loss of vision. No loss of Hearing, no ringing in the ears, no dizziness. No nasal drainage or congestion. No epistaxis. No sore throat. Lungs: No shortness of breath, cough, no sputum production. No wheezing. Cardiovascular: No chest pain, no lower extremity edema. No palpitations. No paroxysmal nocturnal dyspnea. No orthopnea. No lightheadedness or dizziness. No syncopal episodes. Abdominal: No abdominal pain. No nausea, vomiting. No diarrhea. No consti pation. No bloody or tarry stools. No loss of appetite. Genitourinary: No dysuria, increased frequency, urgency. No urinary retention. Musculoskeletal: No myalgias. No muscle weakness, no gait dysfunction, no frequent falls. No back pain. No neck pain. Integumentary: No wounds, no lesions. No rash or pruritus. No unusual bruising. No change in hair or nails. Neurologic: No aphasia. No facial droop. No change in mentation. No head injury. No headache. No paralysis. No paresthesia. Psychiatric: No depression. No anxiety. No mood swings. Endocrine: No abnormal blood sugars. No weight change. No excessive sweating or thirst. No cold intolerance. SOCIAL HISTORY Patient was a smoker and quit 50 years ago. No alcohol or drug use. He ambulates with a cane and lives at home with his . PHYSICAL EXAMINATION Gen: This is an 81-year-old male. He is ambulating in his room and appears to be in no acute distress. Patient's is at bedside. HEENT: Head is atraumatic, normocephalic. Pupils equal, round. Sclerae is anicteric. NECK: Supple. No JVD. No lymphadenopathy. No thyromegaly. LUNGS: Clear to auscultation. No wheezes or rhonchi. No intercostal retractions. HEART: Regular rate and rhythm. No murmur. ABDOMEN: Soft. Bowel sounds are present. No masses. No tenderness. Left inguinal hernia site reveals some ecchymosis, no bleeding, no hematoma. EXTREMITIES: No pedal edema. No calf tenderness. NEUROLOGICAL: Patient is awake, alert and oriented x3. Cranial nerves 2 through 12 are grossly intact. ASSESSMENT AND PLAN 1. Non-ST elevated myocardial infarction status post heart catheterization and PCI. 2. Status post left inguinal hernia repair with mesh. 3. Narrow complex tachycardia intraoperatively. 4. Hypotension possibly due to cardiogenic shock requiring vasopressor support. 5. Coronary artery disease with previous CABG and PCI. 6. Hypertension. 7. Hyperlipidemia. 8. Diabetes mellitus type 2. A1c 6.5. 9. Chronic kidney disease stage III likely due to nephrosclerosis. 10. Obstructive sleep apnea status post uvuloplasty. 11. History of bladder cancer. 12. History of basal cell carcinoma. DISCHARGE PLAN Home DISCHARGE MEDICATIONS Vit C/E/Zn/Coppr/Lutein/Zeaxan [Preservision Areds 2 Softgel] 1 cap PO DAILY 12/11/15 [History] Aspirin 81 mg PO DAILY 02/15/21 [History] Ezetimibe [Zetia] 10 mg PO DAILY 02/15/21 [History] Tamsulosin [Flomax] 0.4 mg PO HS 02/15/21 [History] Ubidecarenone [Co Q-10] 100 mg PO DAILY 02/15/21 [History] metFORMIN HCL [Glucophage XR] 750 mg PO W/SUPPER 02/15/21 [History] EPINEPHrine (Auto Inject) [Epipen] 0.3 mg IM ONCE PRN 06/10/21 [History] Atorvastatin [Lipitor] 80 mg PO HS #90 tab 06/11/21 [Rx] Clopidogrel [Plavix] 75 mg PO DAILY #90 tab 06/11/21 [Rx] Losartan [Cozaar] 25 mg PO DAILY@1999 #90 tab 06/11/21 [Rx] Metoprolol Tartrate [Lopressor] 12.5 mg PO BID #180 tab 06/11/21 [Rx] Nitroglycerin Sl Tabs [Nitrostat] 0.4 mg SUBLINGUAL Q5M PRN #100 tab 06/11/21 [Rx] Greater than 35 minutes was utilized and coordinating patient's discharge. Impression and plan of care have been directed as dictated by the signing physician. Cece Abbott nurse practitioner acting as scribe for signing physician. Past Medical History Past Medical History: Coronary Artery Disease (CAD), Cancer, Chest Pain / Angina, Hyperlipidemia, Osteoarthritis (OA) Additional Past Medical History / Comment(s): sleep apnea- no longer a pb since sx, hypotension, retinal scarring lt eye, peptic ulcer years ago, polyps removed were benign,skin cancer 2007, bladder cancer sx only, chronic back pain. History of Any Multi-Drug Resistant Organisms: None Reported Past Surgical History: Appendectomy, Cholecystectomy, Coronary Bypass/CABG, H eart Catheterization With Stent, Joint Replacement Additional Past Surgical History / Comment(s): left knee replacement and then revision, left rotator cuff, bilateral cataracts, sx for sleep apnea, colonoscopy, 3 cardiac stents, skin ca removed from ear, bladder tumor removed, double coronary bypass Past Anesthesia/Blood Transfusion Reactions: No Reported Reaction Date of Last Stent Placement:: unk Past Psychological History: No Psychological Hx Reported Smoking Status: Former smoker Past Alcohol Use History: Rare Additional Past Alcohol Use History / Comment(s): smoked x 15 years appd, quit 1976 Past Drug Use History: None Reported - Past Family History Mother Family Medical History: Cancer Additional Family Medical History / Comment(s): colon cancer Father Family Medical History: Diabetes Mellitus Medications and Allergies Home Medications Medication Instructions Recorded Confirmed Type Vit C/E/Zn/Coppr/Lutein/Zeaxan 1 cap PO DAILY 12/11/15 06/10/21 History [Preservision Areds 2 Softgel] Aspirin 81 mg PO DAILY 02/15/21 06/10/21 History Ezetimibe [Zetia] 10 mg PO DAILY 02/15/21 06/10/21 History Tamsulosin [Flomax] 0.4 mg PO HS 02/15/21 06/10/21 History Ubidecarenone [Co Q-10] 100 mg PO DAILY 02/15/21 06/10/21 History metFORMIN HCL [Glucophage XR] 750 mg PO W/SUPPER 02/15/21 06/10/21 History EPINEPHrine (Auto Inject) [Epipen] 0.3 mg IM ONCE PRN 06/10/21 06/10/21 History Atorvastatin [Lipitor] 80 mg PO HS #90 tab 06/11/21 Rx Clopidogrel [Plavix] 75 mg PO DAILY #90 tab 06/11/21 Rx Losartan [Cozaar] 25 mg PO DAILY@1999 #90 tab 06/11/21 Rx Metoprolol Tartrate [Lopressor] 12.5 mg PO BID #180 tab 06/11/21 Rx Nitroglycerin Sl Tabs [Nitrostat] 0.4 mg SUBLINGUAL Q5M PRN #100 tab 06/11/21 Rx Allergies Allergy/AdvReac Type Severity Reaction Status Date / Time Penicillins Allergy Rash/Hives Verified 06/10/21 17:01 adhesive tape AdvReac TEARS SKIN Verified 06/10/21 17:01 Physical Exam Vitals: Vital Signs Temp Pulse Resp BP Pulse Ox 06/11/21 04:20 97.5 F L 80 18 119/69 96 06/10/21 23:30 97.9 F 64 18 104/64 95 06/10/21 19:45 97.8 F 71 20 116/72 95 06/10/21 16:03 60 16 114/59 96 06/10/21 16:00 98.2 F 61 18 116/70 99 06/10/21 15:33 79 16 131/61 96 06/10/21 15:18 69 16 131/57 96 06/10/21 15:03 74 16 142/75 96 06/10/21 14:48 76 16 154/71 96 Intake and Output 06/10/21 06/11/21 06/11/21 22:59 06:59 14:59 Intake Total 240 Output Total 800 Balance -560 Intake: Oral 240 Output: Urine 800 Other: Voiding Method Toilet Toilet Urinal Urinal # Voids 1 # Bowel Movements 1 Weight 81.647 kg Results CBC & Chem 7: 06/11/21 08:54 06/11/21 08:54 Labs: Abnormal Lab Results - Last 24 Hours (Table) 06/10/21 06/10/21 06/10/21 Range/Units 14:44 16:55 20:20 POC Glucose (mg/dL) 109 H 121 H 161 H (75-99) mg/dL 06/11/21 Range/Units 06:29 POC Glucose (mg/dL) 111 H (75-99) mg/dL
== END 2021-06-11 14:20 | disposition home or self-care (01) | DRG 247 ==
LOC: 3SCARD 14:26
PROVIDERS: ADMIT Family Medicine; ATTEND Family Medicine
PROC: 027034Z Dilation of Coronary Artery, One Artery with Drug-eluting Intraluminal Device, Percutaneous Approach (ICD-10-PCS; principal; 2021-06-10 19:20)
DX: I21.4 Non-ST elevation (NSTEMI) myocardial infarction (principal); I25.10 Atherosclerotic heart disease of native coronary artery without angina pectoris; I49.3 Ventricular premature depolarization; N18.30 Chronic kidney disease, stage 3 unspecified; I13.10 Hypertensive heart and chronic kidney disease without heart failure, with stage 1 through stage 4 chronic kidney disease, or unspecified chronic kidney disease; E11.22 Type 2 diabetes mellitus with diabetic chronic kidney disease; E78.5 Hyperlipidemia, unspecified; G47.33 Obstructive sleep apnea (adult) (pediatric); Z79.01 Long term (current) use of anticoagulants; Z79.02 Long term (current) use of antithrombotics/antiplatelets; Z79.82 Long term (current) use of aspirin; Z79.84 Long term (current) use of oral hypoglycemic drugs; Z79.899 Other long term (current) drug therapy; Z80.0 Family history of malignant neoplasm of digestive organs; Z83.3 Family history of diabetes mellitus; Z85.51 Personal history of malignant neoplasm of bladder; Z85.828 Personal history of other malignant neoplasm of skin; Z87.891 Personal history of nicotine dependence; Z95.1 Presence of aortocoronary bypass graft; Z96.652 Presence of left artificial knee joint; Z95.5 Presence of coronary angioplasty implant and graft
CPT/HCPCS: 80048; 85025